=== PATIENT | female | born 1965 | race Caucasian/White ===

== ENCOUNTER 2022-09-26 08:52 | Inpatient (IN) | payer OTHER ==
[2022-09-26 09:30] LABS: Actual Bicarbonate (HCO3v) 19 mEq/L (22-28); Analyzer IN Cardio ER; Base Excess -5.6 mEq/L (-2.0 to +3.0); Calcium, Ionized (venous) 0.97 mmol/L (1.16-1.32); Chloride (VBG) 114 mmol/L (98-106); Hemoglobin (Hb) 12.9 g/dL (11.7-16.0); Potassium (VBG) 4.01 mmol/L (3.70-5.30); Sodium 140.3 mmol/L (133-146); pH (venous) 7.37 (7.32-7.43)
[2022-09-26 09:37] LABS: #Basophils 0.1 thou/uL (0.0-0.2); #Eosinphils 0.3 thou/uL (0.0-0.7); #Lymphocytes 3.9 thou/uL (1.20-3.40); #Neutrophils 3.5 thou/uL (1.40-6.50); %Basophils 1.1 % (0.0-1.0); %Eosinophils 3.7 % (0.0-10.0); %Lymphocytes 43.6 % (21.0-51.0); %Monocytes 11.6 % (0.0-10.0); Mean Corpuscular HGB CONC 32.6 g/dL (32.0-36.0); Mean Corpuscular Hemoglobin 33.3 pg (27.0-31.0); Mean Platelet Volume 7.5 fL (7.4-10.4); Platelet Count 231 10x3/uL (130-400); RBC Distribution Width 11.9 % (11.5-14.5); White Blood Cell (WBC) Count 8.9 10x3/uL (4.8-10.8)
[2022-09-26 09:57] LABS: Albumin 3.6 g/dL (3.5-5.0)
[2022-09-26 09:58] LABS: Chloride 115 mmol/L (98-107); Sodium 141 mmol/L (136-145)
[2022-09-26 09:59] LABS: Calcium 8.1 mg/dL (7.8-10.44)
[2022-09-26 10:00] LABS: Globulin 2.1 g/dL (2.4-3.5); Glucose 79 mg/dL (70-105); Protein, Total 5.7 g/dL (6.0-8.3)
[2022-09-26 10:02] LABS: Alcohol Less than 10 mg/dL (Less than 10); Alkaline Phosphatase 41 U/L (40-110); Anion Gap 11 mmol/L (10-20); Bilirubin, Total 0.4 mg/dL (0.2-1.2); Carbon Dioxide 19 mmol/L (22-29)
[2022-09-26 10:03] LABS: Calc. Creatinine Clearance 0 mL/min (70-130); Estimated GFR 56
[2022-09-26 10:04] LABS: BUN (Urea Nitrogen) 21 mg/dL (9.8-20.1); Salicylate Less than 8.0 mg/dL (15.0-30.0)
[2022-09-26 10:05] LABS: AST (SGOT) 15 U/L (5-34); Acetaminophen Less than 10.0 mcg/mL (10.0-30.0)
[2022-09-26 10:06] LABS: ALT (SGPT) 9 U/L (8-55)
[2022-09-26 10:27] LABS: CK (CPK) 144 U/L (29-168)
[2022-09-26 11:32] LABS: Pregnancy Test - Urine (BHCG) Negative (Negative); Pregu Control Background? CLEAR/WHITE (CLR/WHITE); Pregu Control Bar Appear? YES (CONTROL BAR); Specific Gravity 1.009 (1.002-1.036)
[2022-09-26 11:36] LABS: Bacteria/HPF None Seen HPF (None Seen); Bilirubin Negative (Negative); Blood, Urine Negative (Negative); Clarity Clear (Clear); Glucose, Urine (Dipstick) Normal (Negative); Ketone, Urine Negative (Negative); Leukocyte Negative Leu/uL (Negative); Nitrite Negative (Negative); Protein, Urine (Dipstick) Negative (Neg-Trace); RBC/HPF 0-3 HPF (0-3); Specific Gravity, Urine 1.009 (1.002-1.036); Squamous Epithelial 0-3 HPF (0-3); Urobilinogen Normal mg/dL (Less than 2); WBC/HPF 0-3 HPF (0-3); pH, Urine 5.5 (5.0-9.0)
[2022-09-26 11:40] LABS: Amphetamine Not Detected (NotDetected); Barbiturates Screen Not Detected (NotDetected); Benzodiazepine Screen Detected (NotDetected); Cocaine Metabolite Screen Not Detected (NotDetected); Methadone Not Detected (NotDetected); Methamphetamine Not Detected (NotDetected); Opiate Screen Not Detected (NotDetected); Oxycodone Screen Not Detected (NotDetected); Phencyclidine (PCP) Not Detected (NotDetected); THC/Cannabinoid Screen Not Detected (NotDetected); Tricyclic Screen Not Detected (NotDetected)
[2022-09-26] MEDS ORDERED: Senokot S 8.6-50 MG TAB PO PRN (14:34)
[2022-09-26] MEDS ORDERED: Ondansetron PF 4 MG/2 ML Vial IVP PRN (14:34)
[2022-09-26] MEDS ORDERED: Ondansetron ODT 4 MG TAB PO PRN (14:34)
[2022-09-26] MEDS ORDERED: Ipratropium/Albuterol 3 ML NEB NEB PRN (14:36)
[2022-09-26] MEDS ORDERED: Acetaminophen 650 MG Suppository PR PRN (14:41)
[2022-09-26] MEDS: Sodium Chloride 0.9% 1,000 ML IV SCH ×2 (15:34→17:28)
[2022-09-26] MEDS: Nicotine 14 MG PATCH TD SCH (17:28)
[2022-09-26 17:58] LABS: SARS-CoV-2 NAA Rapid Test Not Detected (NotDetected)
[2022-09-27] MEDS: Sodium Chloride 0.9% 1,000 ML IV SCH ×2 (01:56→04:30)
[2022-09-27] MEDS ORDERED: Sodium Chloride 0.9% 500 ML IV SCH (04:15)
[2022-09-27] MEDS ORDERED: NOREPINEPHRINE 8 MG/250 ML-D5W 250 ML IVPB SCH (04:45)
[2022-09-27] MEDS ORDERED: NOREPINEPHRINE 8 MG/250 ML-D5W 250 ML ONE (04:49)
[2022-09-27 04:55] LABS: #Lymphocytes 1.1 thou/uL (1.20-3.40); #Monocytes 0.4 thou/uL (0.11-0.59); #Neutrophils 6.8 thou/uL (1.40-6.50); %Basophils 0.2 % (0.0-1.0); %Eosinophils 0.5 % (0.0-10.0); %Lymphocytes 12.9 % (21.0-51.0); %Monocytes 4.6 % (0.0-10.0); %Neutrophils 81.8 % (42.0-75.0); Hemoglobin 10.6 g/dL (12.0-16.0); Mean Corpuscular HGB CONC 32.8 g/dL (32.0-36.0); Mean Platelet Volume 7.4 fL (7.4-10.4); Platelet Count 214 10x3/uL (130-400); Red Blood Cell (RBC) Count 3.13 mill/uL (4.20-5.40); White Blood Cell (WBC) Count 8.3 10x3/uL (4.8-10.8)
[2022-09-27 05:06] LABS: Actual Bicarbonate (HCO3a) 18.1 mEq/L (22-28); Base Excess (BEa) -8.4 mEq/L (-2.0 to +3.0); CO2 Tension 40.8 mmHg (35.0-45.0); Calcium, Ionized (arterial) 1.12 mmol/L (1.12-1.30); Carboxyhemoglobin (COHb) 1.2 gm% (0.0-3.0); Hemoglobin (Hb) 10.9 g/dL (12.0-16.0); pH, Arterial 7.26 (7.35-7.45)
[2022-09-27 05:07] LABS: O2 Tension (PaO2), arterial 49.4 mmHg (80.0-100.0)
[2022-09-27 05:08] LABS: Puncture Site RBA
[2022-09-27 05:10] LABS: Lactic Acid 0.9 mmol/L (0.5-2.2)
[2022-09-27 05:17] LABS: ALT (SGPT) 9 U/L (8-55); AST (SGOT) 15 U/L (5-34); Albumin 3.2 g/dL (3.5-5.0); Alkaline Phosphatase 36 U/L (40-110); Anion Gap 9 mmol/L (10-20); BUN (Urea Nitrogen) 21 mg/dL (9.8-20.1); Bilirubin, Total 0.6 mg/dL (0.2-1.2); Calc. Creatinine Clearance 55 mL/min (70-130); Calcium 7.7 mg/dL (7.8-10.44); Carbon Dioxide 18 mmol/L (22-29); Chloride 119 mmol/L (98-107); Estimated GFR 56; Glucose 110 mg/dL (70-105); Potassium 4.6 mmol/L (3.5-5.1); Protein, Total 5.2 g/dL (6.0-8.3); Sodium 141 mmol/L (136-145)
[2022-09-27] MEDS ORDERED: Succinylcholine Chloride 100 MG/5 ML SYRINGE FS ONE (05:46)
[2022-09-27 06:24] LABS: Actual Bicarbonate (HCO3a) 17.2 mEq/L (22-28); Base Excess (BEa) -8.8 mEq/L (-2.0 to +3.0); CO2 Tension 37.9 mmHg (35.0-45.0); Calcium, Ionized (arterial) 1.13 mmol/L (1.12-1.30); Carboxyhemoglobin (COHb) 0.7 gm% (0.0-3.0); Hemoglobin (Hb) 12.2 g/dL (12.0-16.0); O2 Tension (PaO2), arterial 313.1 mmHg (80.0-100.0); Potassium - ABG Lab 4.78 mmol/L (3.70-5.30); pH, Arterial 7.28 (7.35-7.45)
[2022-09-27 06:26] LABS: ALV-art Gradient 352.525 mmHg (0-20); Puncture Site RRA
[2022-09-27] MEDS ORDERED: Sodium Chloride 0.9% 1,000 ML IV SCH (06:45)
[2022-09-27] MEDS ORDERED: Sodium Bicarbonate 150 MEQ in Dextrose 5% in Water 1,000 ML IV SCH (07:00)
[2022-09-27] MEDS ORDERED: Propofol 1,000 MG/100 ML VIAL IV ONE (07:16)
[2022-09-27] MEDS ORDERED: Propofol BOLUS 1,000 MG/100 ML VIAL IV PRN (07:30)
[2022-09-27] MEDS ORDERED: DISCONTINUE PREVIOUS NARCOTIC PAIN MEDICATIONS AND BENZODIAZEPINES FS SCH (07:30)
[2022-09-27] MEDS ORDERED: Fentanyl CADD 100 ML IV SCH (07:30)
[2022-09-27] MEDS ORDERED: Fentanyl BOLUS 250 ML IVPB PRN (07:30)
[2022-09-27] MEDS ORDERED: Ventilator Sedation Protocol 1 EACH FS SCH (07:30)
[2022-09-27] MEDS ORDERED: Lorazepam 2 MG/ML VIAL SLOW IVP PRN (07:30)
[2022-09-27] MEDS ORDERED: Morphine 4 MG/ML VIAL SLOW IVP PRN (07:30)
[2022-09-27] MEDS: Propofol 1,000 MG/100 ML VIAL IV PRN (07:30)
[2022-09-27] MEDS ORDERED: Dexmedetomidine In 0.9 % NaCl 100 ML IVPB SCH (09:00)
[2022-09-27] MEDS ORDERED: Electrolyte Replacement Protocol 1 EACH IVPB SCH (09:11)
[2022-09-27] MEDS ORDERED: Insulin Regular 300 UNITS/3 ML VIAL SC PRN (09:11)
[2022-09-27] MEDS ORDERED: Ipratropium/Albuterol 3 ML NEB NEB PRN (09:13)
[2022-09-27] MEDS ORDERED: Famotidine/PF 20 mg/2ml Vial SLOW IVP SCH (09:15)
[2022-09-27] MEDS: Nicotine 14 MG PATCH TD SCH (14:19)
[2022-09-27] MEDS: Lactated Ringer's 1,000 ML IV SCH (16:59)
[2022-09-27 18:56] LABS: Anion Gap 12 mmol/L (10-20); BUN (Urea Nitrogen) 19 mg/dL (9.8-20.1); Calc. Creatinine Clearance 66 mL/min (70-130); Calcium 7.9 mg/dL (7.8-10.44); Carbon Dioxide 15 mmol/L (22-29); Chloride 117 mmol/L (98-107); Estimated GFR 68; Glucose 123 mg/dL (70-105); Potassium 4.7 mmol/L (3.5-5.1); Sodium 139 mmol/L (136-145)
[2022-09-28] MEDS: Propofol 1,000 MG/100 ML VIAL IV PRN ×4 (04:23→23:40)
[2022-09-28 04:38] LABS: #Eosinphils 0.1 thou/uL (0.0-0.7); #Lymphocytes 2.2 thou/uL (1.20-3.40); #Monocytes 0.8 thou/uL (0.11-0.59); #Neutrophils 8.5 thou/uL (1.40-6.50); %Basophils 0.2 % (0.0-1.0); %Eosinophils 0.8 % (0.0-10.0); %Lymphocytes 18.8 % (21.0-51.0); %Monocytes 6.6 % (0.0-10.0); %Neutrophils 73.6 % (42.0-75.0); Hemoglobin 10.4 g/dL (12.0-16.0); Mean Corpuscular Hemoglobin 32.9 pg (27.0-31.0); Mean Corpuscular Volume 99.8 fl (78.0-98.0); Mean Platelet Volume 7.8 fL (7.4-10.4); Platelet Count 190 10x3/uL (130-400); Red Blood Cell (RBC) Count 3.15 mill/uL (4.20-5.40); White Blood Cell (WBC) Count 11.5 10x3/uL (4.8-10.8)
[2022-09-28 05:00] LABS: ALT (SGPT) 8 U/L (8-55); AST (SGOT) 13 U/L (5-34); Albumin 2.6 g/dL (3.5-5.0); Alkaline Phosphatase 32 U/L (40-110); Anion Gap 9 mmol/L (10-20); BUN (Urea Nitrogen) 17 mg/dL (9.8-20.1); Bilirubin, Total 0.8 mg/dL (0.2-1.2); Calc. Creatinine Clearance 66 mL/min (70-130); Calcium 7.8 mg/dL (7.8-10.44); Carbon Dioxide 21 mmol/L (22-29); Chloride 111 mmol/L (98-107); Estimated GFR 69; Globulin 1.9 g/dL (2.4-3.5); Glucose 128 mg/dL (70-105); Potassium 2.9 mmol/L (3.5-5.1); Protein, Total 4.5 g/dL (6.0-8.3); Sodium 138 mmol/L (136-145)
[2022-09-28] MEDS: Lactated Ringer's 1,000 ML IV SCH ×2 (06:09→12:56)
[2022-09-28] MEDS: Potassium Bicarbonate/Cit Ac 20 MEQ TAB PER TUBE SCH ×2 (07:27→10:45)
[2022-09-28 08:07] LABS: Base Excess (BEa) -1.1 mEq/L (-2.0 to +3.0); CO2 Tension 27.5 mmHg (35.0-45.0); Calcium, Ionized (arterial) 1.12 mmol/L (1.12-1.30); Carboxyhemoglobin (COHb) 0.2 gm% (0.0-3.0); Hemoglobin (Hb) 11.5 g/dL (12.0-16.0); O2 Tension (PaO2), arterial 121.8 mmHg (80.0-100.0); Potassium - ABG Lab 2.96 mmol/L (3.70-5.30)
[2022-09-28 08:14] LABS: ALV-art Gradient 271.625 mmHg (0-20); Puncture Site LBA
[2022-09-28] MEDS ORDERED: Famotidine/PF 20 mg/2ml Vial SLOW IVP SCH (09:00)
[2022-09-28 10:01] LABS: Magnesium 1.4 mg/dL (1.6-2.6); Phosphorus 1.7 mg/dL (2.3-4.7)
[2022-09-28] MEDS ORDERED: Magnesium Sulfate In Water 4 GM in Premix Bag 1 BAG IVPB SCH (10:15)
[2022-09-28] MEDS ORDERED: Potassium Phosphate 15 MMOL in Sodium Chloride 0.9% 100 ML IVPB SCH (12:00)
[2022-09-28] MEDS ORDERED: Magnesium Sulfate 4 GM in Sodium Chloride 0.9% 250 ML 250 ML IVPB SCH (12:00)
[2022-09-28] MEDS: Nicotine 14 MG PATCH TD SCH (14:07)
[2022-09-29] MEDS ORDERED: Acetaminophen 650 MG/20.3 ML UDCUP PER TUBE PRN (00:56)
[2022-09-29] MEDS ORDERED: Acetaminophen 650 MG Suppository PR PRN (00:56)
[2022-09-29] MEDS: Lactated Ringer's 1,000 ML IV SCH ×4 (01:17→21:47)
[2022-09-29 04:10] LABS: #Eosinphils 0.1 thou/uL (0.0-0.7); #Lymphocytes 1.5 thou/uL (1.20-3.40); #Neutrophils 10.3 thou/uL (1.40-6.50); %Basophils 0.1 % (0.0-1.0); %Eosinophils 0.7 % (0.0-10.0); %Lymphocytes 11.8 % (21.0-51.0); %Monocytes 7.8 % (0.0-10.0); %Neutrophils 79.6 % (42.0-75.0); Hemoglobin 9.8 g/dL (12.0-16.0); Mean Corpuscular HGB CONC 34.2 g/dL (32.0-36.0); Mean Corpuscular Hemoglobin 33.9 pg (27.0-31.0); Mean Platelet Volume 7.9 fL (7.4-10.4); Platelet Count 166 10x3/uL (130-400); RBC Distribution Width 11.9 % (11.5-14.5); Red Blood Cell (RBC) Count 2.89 mill/uL (4.20-5.40)
[2022-09-29 04:50] LABS: Phosphorus 2.9 mg/dL (2.3-4.7)
[2022-09-29 04:51] LABS: Anion Gap 8 mmol/L (10-20); BUN (Urea Nitrogen) 9 mg/dL (9.8-20.1); Calc. Creatinine Clearance 79 mL/min (70-130); Carbon Dioxide 24 mmol/L (22-29); Chloride 110 mmol/L (98-107); Potassium 3.2 mmol/L (3.5-5.1); Sodium 139 mmol/L (136-145)
[2022-09-29 04:52] LABS: ALT (SGPT) 12 U/L (8-55); AST (SGOT) 27 U/L (5-34); Albumin 2.5 g/dL (3.5-5.0); Alkaline Phosphatase 34 U/L (40-110); Bilirubin, Total 0.7 mg/dL (0.2-1.2); Calcium 7.9 mg/dL (7.8-10.44); Estimated GFR 85; Globulin 2.1 g/dL (2.4-3.5); Glucose 181 mg/dL (70-105); Magnesium 1.9 mg/dL (1.6-2.6); Protein, Total 4.6 g/dL (6.0-8.3)
[2022-09-29] MEDS ORDERED: Potassium Bicarbonate/Cit Ac 20 MEQ TAB PER TUBE SCH (08:00)
[2022-09-29] MEDS ORDERED: Magnesium 2 GM/50 ML(in water) 2 GM in Premix Bag 1 BAG IVPB SCH (08:00)
[2022-09-29] MEDS: Propofol 1,000 MG/100 ML VIAL IV PRN ×3 (08:28→21:41)
[2022-09-29] MEDS: Famotidine/PF 20 mg/2ml Vial SLOW IVP SCH ×2 (08:35→21:41)
[2022-09-29] MEDS: methylPREDNISolone Sod Succ 40 MG VIAL IVP SCH ×2 (13:24→17:33)
[2022-09-29] MEDS: Nicotine 14 MG PATCH TD SCH (14:50)
[2022-09-30] MEDS: methylPREDNISolone Sod Succ 40 MG VIAL IVP SCH ×5 (00:35→23:53)
[2022-09-30] MEDS: Propofol 1,000 MG/100 ML VIAL IV PRN (03:57)
[2022-09-30 04:50] LABS: #Lymphocytes 0.6 thou/uL (1.20-3.40); #Monocytes 0.5 thou/uL (0.11-0.59); #Neutrophils 10.4 thou/uL (1.40-6.50); %Eosinophils 0.1 % (0.0-10.0); %Lymphocytes 5.1 % (21.0-51.0); %Monocytes 4.1 % (0.0-10.0); %Neutrophils 90.7 % (42.0-75.0); Hemoglobin 10.7 g/dL (12.0-16.0); Mean Corpuscular HGB CONC 34.4 g/dL (32.0-36.0); Mean Corpuscular Hemoglobin 34.5 pg (27.0-31.0); Mean Platelet Volume 8.3 fL (7.4-10.4); Platelet Count 200 10x3/uL (130-400); RBC Distribution Width 11.6 % (11.5-14.5); Red Blood Cell (RBC) Count 3.11 mill/uL (4.20-5.40); White Blood Cell (WBC) Count 11.5 10x3/uL (4.8-10.8)
[2022-09-30 05:22] LABS: Anion Gap 12 mmol/L (10-20); BUN (Urea Nitrogen) 12 mg/dL (9.8-20.1); Calc. Creatinine Clearance 92 mL/min (70-130); Calcium 8.6 mg/dL (7.8-10.44); Carbon Dioxide 22 mmol/L (22-29); Chloride 109 mmol/L (98-107); Estimated GFR 97; Glucose 223 mg/dL (70-105); Phosphorus 3.3 mg/dL (2.3-4.7); Potassium 3.6 mmol/L (3.5-5.1); Sodium 139 mmol/L (136-145)
[2022-09-30] MEDS ORDERED: Magnesium 2 GM/50 ML(in water) 2 GM in Premix Bag 1 BAG IVPB SCH (08:00)
[2022-09-30] MEDS: Lactated Ringer's 1,000 ML IV SCH (08:13)
[2022-09-30] MEDS: Famotidine/PF 20 mg/2ml Vial SLOW IVP SCH ×2 (08:54→20:28)
[2022-09-30] MEDS ORDERED: Lorazepam 2 MG/ML VIAL SLOW IVP PRN (09:16)
[2022-09-30] MEDS ORDERED: Haloperidol Lactate 5 MG/ML VIAL SLOW IVP SCH (09:45)
[2022-09-30] MEDS ORDERED: Furosemide 40 MG/4 ML VIAL ONE (10:22)
[2022-09-30] MEDS ORDERED: Furosemide 40 MG/4 ML VIAL SLOW IVP SCH (10:30)
[2022-09-30] MEDS ORDERED: DC Sedation Protocol FS ONE (11:15)
[2022-09-30] MEDS: Ipratropium/Albuterol 3 ML NEB NEB SCH ×3 (14:19→23:43)
[2022-09-30] MEDS: Nicotine 14 MG PATCH TD SCH (14:56)
[2022-09-30] MEDS: guaiFENesin ER 600 MG TAB PO SCH (20:28)
[2022-10-01 05:02] LABS: #Lymphocytes 0.7 thou/uL (1.20-3.40); #Monocytes 0.8 thou/uL (0.11-0.59); #Neutrophils 16.3 thou/uL (1.40-6.50); %Eosinophils 0.1 % (0.0-10.0); %Lymphocytes 3.7 % (21.0-51.0); %Monocytes 4.4 % (0.0-10.0); %Neutrophils 91.8 % (42.0-75.0); Hemoglobin 10.3 g/dL (12.0-16.0); Mean Corpuscular HGB CONC 33.2 g/dL (32.0-36.0); Mean Corpuscular Hemoglobin 33.1 pg (27.0-31.0); Mean Corpuscular Volume 99.9 fl (78.0-98.0); Mean Platelet Volume 8.2 fL (7.4-10.4); Platelet Count 265 10x3/uL (130-400); RBC Distribution Width 11.9 % (11.5-14.5); White Blood Cell (WBC) Count 17.7 10x3/uL (4.8-10.8)
[2022-10-01 05:19] LABS: Anion Gap 14 mmol/L (10-20); BUN (Urea Nitrogen) 23 mg/dL (9.8-20.1); Calc. Creatinine Clearance 82 mL/min (70-130); Calcium 8.8 mg/dL (7.8-10.44); Carbon Dioxide 23 mmol/L (22-29); Chloride 107 mmol/L (98-107); Estimated GFR 87; Glucose 208 mg/dL (70-105); Potassium 3.3 mmol/L (3.5-5.1); Sodium 141 mmol/L (136-145)
[2022-10-01] MEDS: methylPREDNISolone Sod Succ 40 MG VIAL IVP SCH ×3 (05:24→17:23)
[2022-10-01] MEDS ORDERED: Potassium Chloride 20 MEQ TAB PO SCH (08:00)
[2022-10-01] MEDS: Ipratropium/Albuterol 3 ML NEB NEB SCH ×3 (08:14→19:09)
[2022-10-01] MEDS: Famotidine/PF 20 mg/2ml Vial SLOW IVP SCH (08:19)
[2022-10-01] MEDS: guaiFENesin ER 600 MG TAB PO SCH (08:19)
[2022-10-01] MEDS ORDERED: Potassium Bicarbonate/Cit Ac 20 MEQ TAB PO SCH (08:30)
[2022-10-01 12:04] VITALS: BP 148/73
[2022-10-01 13:19] LABS: Potassium 3.8 mmol/L (3.5-5.1)
[2022-10-01 15:28] VITALS: BMI 24.7
[2022-10-01] MEDS: Nicotine 14 MG PATCH TD SCH (15:40)
[2022-10-01] MEDS ORDERED: Metoprolol Tartrate 25 MG TAB PO SCH (17:00)
[2022-10-01 17:35] VITALS: TEMP 99.1
== END 2022-10-01 20:05 | DRG 917 ==
LOC: ERS 08:52 → ERHOLD 12:36 → 2NO 16:18 → CCU 09-27 04:46 → OBSVTOIN 09-27 07:22 → T4-B 10-01 16:31
PROVIDERS: ADMIT Hospitalist; ATTEND Internal Medicine
PROC: 3E033XZ Introduction of Vasopressor into Peripheral Vein, Percutaneous Approach (ICD-10-PCS; principal; 2022-09-27)
PROC: 0BH17EZ Insertion of Endotracheal Airway into Trachea, Via Natural or Artificial Opening (ICD-10-PCS; 2022-09-27)
PROC: 5A1945Z Respiratory Ventilation, 24-96 Consecutive Hours (ICD-10-PCS; 2022-09-27)
DX: T42.4X2A Poisoning by benzodiazepines, intentional self-harm, initial encounter (principal); G93.41 Metabolic encephalopathy; J69.0 Pneumonitis due to inhalation of food and vomit; J96.01 Acute respiratory failure with hypoxia; R57.8 Other shock; N17.9 Acute kidney failure, unspecified; E87.20 Acidosis, unspecified; Z20.822 Contact with and (suspected) exposure to COVID-19; E87.6 Hypokalemia; E88.09 Other disorders of plasma-protein metabolism, not elsewhere classified; I95.9 Hypotension, unspecified; E78.5 Hyperlipidemia, unspecified; G89.29 Other chronic pain; M54.9 Dorsalgia, unspecified; F17.210 Nicotine dependence, cigarettes, uncomplicated; E86.0 Dehydration; N18.30 Chronic kidney disease, stage 3 unspecified; I12.9 Hypertensive chronic kidney disease with stage 1 through stage 4 chronic kidney disease, or unspecified chronic kidney disease; E83.42 Hypomagnesemia; E83.39 Other disorders of phosphorus metabolism; F32.A Depression, unspecified; I25.10 Atherosclerotic heart disease of native coronary artery without angina pectoris; Z86.19 Personal history of other infectious and parasitic diseases; Z88.0 Allergy status to penicillin; Z79.899 Other long term (current) drug therapy; Z79.52 Long term (current) use of systemic steroids; Z78.1 Physical restraint status; F41.1 Generalized anxiety disorder
CPT/HCPCS: 36415; 36416; 36600; 51701; 51702; 51798; 71045; 80048; 80053; 80306; 80307; 81003; 81025; 82550; 82805; 83605; 83735; 83880; 84100; 84443; 85025; 87040; 93005; 94002; 94003; 94640; 94760; 96365; 96366; 96375; G0378; J1630; J1650; J1940; J1956; J2060; J2704; J2920; J3475; J3490; J7050; J7070; J7120; J7620; Q0162; S0028